=== PATIENT | male | born 1965 | race Caucasian/White ===

== ENCOUNTER → 2017-07-07 | Outpatient (CLI) | payer OTHER | LOC: BMCIMAGING 14:22 | PROVIDERS: ATTEND Internal Medicine | DX: R05 Cough (principal); R06.2 Wheezing ==

== ENCOUNTER → 2017-12-15 | Outpatient (CLI) | payer OTHER | LOC: BMCIMAGING 09:41 | PROVIDERS: ATTEND Family Medicine | DX: N43.3 Hydrocele, unspecified (principal) ==

== ENCOUNTER → 2018-03-08 | Outpatient (CLI) | payer OTHER | LOC: FIMAGING 09:28 | PROVIDERS: ATTEND Urology | DX: N43.3 Hydrocele, unspecified (principal); K42.9 Umbilical hernia without obstruction or gangrene ==

== ENCOUNTER → 2018-04-14 | Outpatient (CLI) | payer OTHER | LOC: BMCIMAGING 07:32 | PROVIDERS: ATTEND Urology | DX: N43.3 Hydrocele, unspecified (principal) ==

== ENCOUNTER → 2018-09-21 | Outpatient (CLI) | payer OTHER | LOC: BMCIMAGING 12:49 | PROVIDERS: ATTEND Internal Medicine Endocrinology, Diabetes & Metabolism | DX: E04.1 Nontoxic single thyroid nodule (principal) | CPT/HCPCS: 76536-PO ==

== ENCOUNTER → 2018-10-05 | Outpatient (CLI) | payer OTHER ==
[~2018-10-05] MED LIST: LIDOCAINE 1% 5 ML SDV ONE
== END ==
LOC: FIMAGING 12:29
PROVIDERS: ATTEND Internal Medicine Endocrinology, Diabetes & Metabolism
PROC: 0G9G3ZX Drainage of Left Thyroid Gland Lobe, Percutaneous Approach, Diagnostic (ICD-10-PCS; principal; 2018-10-05)
DX: E04.1 Nontoxic single thyroid nodule (principal)